=== PATIENT | male | born 2000 | race Caucasian/White ===

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

== ENCOUNTER → 2019-02-22 | Outpatient (CLI) | payer OTHER ==
[~2019-02-22] MED LIST: FLON1SPR; GABA-1171; IBUP-1022 PO; TOPI50TA9; ZOFR4TAB14 PO; ZYRT10CA5 PO
[2019-02-22 18:02] LABS: BASO % 0.6 % (0.0-1.0); EOS # 0.1 10^3/uL (0.0-0.50); EOS % 2.2 % (0.0-3.0); HEMATOCRIT 41.9 % (42.0-52.0); HEMOGLOBIN 14.2 g/dl (13.5-17.5); LYMPH # 1.9 10^3/uL (1.5-6.5); LYMPH % 35.4 % (24.0-44.0); MEAN CORPUSCULAR HEMOGLOBIN 32.6 pg (27.0-33.0); MEAN CORPUSCULAR HGB CONC 33.9 g/dl (32.0-36.5); MEAN CORPUSCULAR VOLUME 96.3 fl (80.0-96.0); MONO # 0.6 10^3/uL (0.0-0.8); MONO % 11.5 % (0.0-5.0); NEUTROPHILS # 2.7 10^3/uL (1.8-7.7); NEUTROPHILS % 50.1 % (36.0-66.0); PLATELET COUNT, AUTOMATED 295 10^3/uL (150-450); RED BLOOD COUNT 4.35 10^6/uL (4.30-6.10); WHITE BLOOD COUNT 5.4 10^3/uL (4.0-10.0)
[2019-02-22 18:16] LABS: IMMUNOGLOBULIN E 75.5 IU/ML (<100); IMMUNOGLOBULIN M 49.9 MG/DL (40-230)
[2019-02-27 00:06] LABS: ANTI TETANUS ANTIBODY 1.26 IU/mL (<0.10); ANTINUCLEAR ANTIBODIES DIRECT Negative (Negative); EBV AB TO NUCLEAR ANTIGEN <18.0 U/mL (0.0-17.9); EBV VIRAL CAPSID AG IgG <18.0 U/mL (0.0-17.9); EBV VIRAL CAPSID AG IgM <36.0 U/mL (0.0-35.9)
== END ==
LOC: M WUC 10:35
PROVIDERS: ATTEND Allergy & Immunology
DX: J32.9 Chronic sinusitis, unspecified (principal); R53.81 Other malaise

== ENCOUNTER 2021-02-28 12:41 | Inpatient (IN) | payer OTHER ==
[~2021-02-28] VITALS: Ht 172.7 cm; Wt 81.9 kg
[2021-02-28 14:01] LABS: HEMATOCRIT 42.6 % (42.0-52.0); HEMOGLOBIN 15.1 g/dl (13.5-17.5); MEAN CORPUSCULAR HEMOGLOBIN 32.2 pg (27.0-33.0); MEAN CORPUSCULAR HGB CONC 35.4 g/dl (32.0-36.5); MEAN CORPUSCULAR VOLUME 90.8 fl (80.0-96.0); PLATELET COUNT, AUTOMATED 336 10^3/uL (150-450); RED BLOOD COUNT 4.69 10^6/uL (4.30-6.10); WHITE BLOOD COUNT 9.6 10^3/uL (4.0-10.0)
[2021-02-28 14:46] LABS: AMPHETAMINES LEVEL URINE NEGATIVE (NEGATIVE); BARBITURATES URINE NEGATIVE (NEGATIVE); BENZODIAZEPINES URINE NEGATIVE (NEGATIVE); CANNABINOIDS URINE POSITIVE (NEGATIVE); COCAINE METABOLITE URINE NEGATIVE (NEGATIVE); METHADONE URINE NEGATIVE (NEGATIVE); OPIATES URINE NEGATIVE (NEGATIVE); PHENCYCLIDINE URINE NEGATIVE (NEGATIVE)
[2021-02-28 14:46] LABS: ACETAMINOPHEN LEVEL < 2.0 UG/ML (10.0-30.0); ALBUMIN 4.6 GM/DL (3.2-5.2); ALT/SGPT 21 U/L (12-78); BILIRUBIN,DIRECT 0.2 MG/DL (0.0-0.2); BILIRUBIN,TOTAL 0.6 MG/DL (0.2-1.0); BLOOD UREA NITROGEN 21 MG/DL (7-18); CALCIUM LEVEL 9.9 MG/DL (8.5-10.1); CARBON DIOXIDE LEVEL 27 MEQ/L (21-32); CHLORIDE LEVEL 106 MEQ/L (98-107); CREATININE FOR GFR 0.92 MG/DL (0.70-1.30); ETHYL ALCOHOL (ETHANOL) < 0.003 % (0.000-0.010); GLOMERULAR FILTRATION RATE > 60.0 (>60); GLUCOSE, FASTING 100 MG/DL (70-100); POTASSIUM SERUM 4.1 MEQ/L (3.5-5.1); SALICYLATE LEVEL < 1.7 MG/DL (5.0-30.0); SODIUM LEVEL 138 MEQ/L (136-145); TOTAL PROTEIN 7.9 GM/DL (6.4-8.2)
[2021-02-28] MEDS ORDERED: LORazepam 1 MG TAB PO STA (15:13)
[2021-02-28] MEDS ORDERED: CETI-24 PO (18:55)
[2021-02-28] MEDS ORDERED: ARIP1TAB6 PO (18:55)
[2021-02-28 19:31] LABS: RSV AMPLIFICATION NEGATIVE (NEGATIVE)
[2021-02-28] MEDS ORDERED: MOM 30ML SUSPENSION UDC PO PRN (20:45)
[2021-02-28] MEDS ORDERED: NICOTINE 21MG/24HR 1 EA TRANSDERMAL TD PRN (20:45)
[2021-02-28] MEDS ORDERED: MAALOX 30 ML SUSP *UDC PO PRN (20:45)
[2021-02-28] MEDS ORDERED: ACETAMINOPHEN TAB 650MG DOSE (2X325MG) PO PRN (20:45)
[2021-02-28] MEDS ORDERED: LORazepam 1 MG TAB PO PRN (20:45)
[2021-02-28 22:13] VITALS: BP 116/59
[2021-03-01 06:14] VITALS: BP 136/59
[2021-03-01] MEDS ORDERED: INFLUENZA QUADRIVALENT PF VACCINE 0.5ML SYRINGE IM ONE (09:00)
[2021-03-01] MEDS: CETIRIZINE (ZyrTEC) 10 MG TAB PO SCH (09:15)
--- NOTE | 2021-03-01 10:57 | MHHPEPDOC ---
General Date Of Admission: Feb 28, 2021 Legal Status: 9.39 (the voices in my head was getting worse) Chief Complaint "The voices in my head was getting worse and they were telling me that some people were trying to kill me and told me to get ready to protect myself. History of Present Illness HISTORY OF THE PRESENT ILLNESS: Patient is a 25 -year-old , male, who has been in counseling since his childhood and recently started seeing a psychiatrist about a month ago but no previous inpatient treatment. He apparently was experiencing increasing auditory hallucinations with marked paranoid nature and was trying to protect himself by holding a knife and then hiding inside the bathroom. The patient stated that the voices started to bother him since his high school days where he was hearing different people talking about him and arguing about him and sometimes telling him good and bad things. He was never treated for this, but was getting increasingly disturbed by the voices. He stated that the voices are getting worse in the past several months and lately started telling him that there are unknown group of people with weapons were trying to kill him. He stated that they were telling him that he should protect himself so he grabbed a knife from the kitchen and wrapped in a blanket and was going to neighbors house and later back to his home and went into the bathroom and locked himself in. His mother found him in the bathroom and aunt brought him to the emergency. Patient understand that this could be from his paranoid thoughts but stated that he felt it was a real, and it is getting harder to distinguish reality and his paranoia. He is denying any history of violence. Denies any history of kimberly and denies any history of suicidal attempt. He denies any drug use except for smoking pot, which he stopped 2 months ago. He has been in marked emotional distress and is willing to accept her. He apparently told his mother about the voices only recently was a sin by a psychiatrist 4 weeks ago, but stated that the medicine he took was not helping him. He is currently denying any intent to act out of his paranoia and currently denies any command hallucination and denies any suicidal thoughts. Psychiatric Review of Systems Depression (2 or more weeks): denies Kimberly (4 or more days of): denies Psychosis: auditory hallucination, delusions, paranoia PTSD: denies Anxiety: stressor related anxiety Past Psychiatric History Previous Psychiatric Diagnosis: ., ADHD, schizophrenia Previous Psychiatric Admissions: . No previous inpatient treatment Suicide Attempts: No history of suicidal attempt. Psychiatric Follow-up: . Recently started outpatient treatment Psychiatric medications: . Took antipsychotic medicine for 2 weeks, doesn't know the name Past Medical History Medical Problems Surgeries in 2012 and 2014 for sports related injury in barbering cervical spine and base of skull Has asthma and some allergies Head Injury: No Seizures: No Hospitalizations: Yes Surgeries: Yes Family Medical/Psychiatric HX Medical Problems Noncontributory Psychiatric Disorders: No Addiction: Yes (patient's father and the mother's side. Family has alcohol abuse issues) Suicide Attemps/Completions: No Addiction History denies Social History Childhood: Born in [place]. His parents are . was raised by his mother. Abuse/Trauma:[Denies any]. Current Living Situation: [Lives with the mother]. Education: [Finished her high school]. 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 Social Support: [Mother]. Legal: . No legal history. No history of violence Marital: [, Single]. Mental Status Examination General Appearance: appears stated age Build: average Demeanor: average, preoccupied, guarded Eye Contact: avoidant Activity: average, anxious Behavior: cooperative Speech: clear, slow, normal volume, non-spontaneous Mood: anxious Affect: constricted, appropriate, congruent, anxious Thought Process: logical/linear, slow Thought Content (Delusions): persecutory, paranoia Thought Content (Other): preoccupied, internal-stimuli, appears paranoid Thought Content (Aggressive): none reported, other (. Denies any aggressive thoughts, but he was feeling unsafe and was trying to protect himself) Perception (Hallucinations): auditory Perception (Other): none reported Cognition (Impairment of): none reported Cognition(Intelligence Est.): average Oriented: Awake, Alert, Oriented times three Insight: fair Judgment: Poor Psychosis: Other (, long history of auditory hallucination but recently became much more paranoid and the hallucinations of persecutory nature, but he denies any command hallucination) Diagnoses Schizophrenia, paranoid type A-FIB/CHADSVASC A-FIB History Current/History of A-Fib/PAF?: No Current PO Anticoag Therapy: No Age/Risk Factor Scoring CHADSVASC: CHADSVASC Response (Comments) Value Gender Risk Factor Male 0 Hx of CHF No 0 Hx of HTN No 0 Hx of Stroke/TIA/or VTE No 0 Hx of Diabetes No 0 Hx of Vascular Disease No 0 Total 0 Treatment Treatment ordered: NONE Assessment Parent had the symptoms starting several years back but recently becoming much more severe. Clearly in need of stabilization with antipsychotic medicine and supportive therapy Initial Treatment Plan 1. Patient was admitted on a 9.39 status. 2. Complete history was obtained. 3. With patients permission, family will be contacted and database will be expanded. 4. Patients medication regimen will be reviewed and changed accordingly. 5. Patient will be provided with protected environment. 6. Patient will be treated with individual, group, and milieu therapies. 7. Patient will receive supportive psych-education. 8. Discharge planning will commence immediately. 9. Outpatient follow-up treatment will be strongly recommended. 10. The initial treatment plan will focus initially on: * Depression. * Risk for suicide. ESTIMATED LENGTH OF STAY: 5-7 DAYS. TIME SPENT COUNSELING AND COORDINATING INITIAL CARE: 45 minutes. Tobacco Cessation Screen If Patient is a Smoker Non-small N/A-No Antipsychotics Vital Signs Vital Signs Date Time Temp Pulse Resp B/P (MAP) Pulse Ox O2 Delivery O2 Flow Rate FiO2 03/01/21 06:14 98.4 76 18 136/59 (84) 97 Room Air Laboratory Data 24H Labs Laboratory Tests 2 02/28/21 13:34: Urine Opiates Screen NEGATIVE, Urine Methadone Screen NEGATIVE, Urine Barbiturates Screen NEGATIVE, Urine Phencyclidine Screen NEGATIVE, Urine Amphetamines Screen NEGATIVE, Urine Benzodiazepines Screen NEGATIVE, Urine Cocaine Metabolite Screen NEGATIVE, Urine Cannabinoids Screen POSITIVEH 02/28/21 13:38: Nucleated Red Blood Cells % (auto) 0.0, Anion Gap 5L, Glomerular Filtration Rate > 60.0, Calcium Level 9.9, Total Bilirubin 0.6, Direct Bilirubin 0.2, Aspartate Amino Transf (AST/SGOT) 17, Alanine Aminotransferase (ALT/SGPT) 21, Alkaline Phosphatase 66, Total Protein 7.9, Albumin 4.6, Albumin/Globulin Ratio 1.4, Thyroid Stimulating Hormone (TSH) 2.020, Salicylates Level < 1.7L, Acetaminophen Level < 2.0L, Ethyl Alcohol Level < 0.003 02/28/21 18:36: Coronavirus (COVID-19)(PCR) NEGATIVE, Influenza Type A (RT-PCR) NEGATIVE, Influenza Type B (RT-PCR) NEGATIVE, Respiratory Syncytial Virus (PCR) NEGATIVE CBC/BMP Laboratory Tests 02/28/21 13:38 Medications Scheduled Aripiprazole (Aripiprazole) 5 Mg Tablet, 5 MG PO DAILY, (Reported) Cetirizine HCl (Cetirizine HCl) 10 Mg Tablet, 10 MG PO DAILY, (Reported) Allergies Coded Allergies: Peanut (Verified Allergy, Severe, 02/28/21) ELISSA DAAMS M.D. Mar 01, 2021 10:57
--- NOTE | 2021-03-01 12:58 | HPEPDOC ---
[facility] Medical History & Physical Date of Admission Feb 28, 2021 Date of Service: Mar 01, 2021 History and Physical CHIEF COMPLAINT: Routine medical exam HISTORY OF PRESENT ILLNESS: 20-year-old male admitted on 02/28/2021 to the inpatient mental health unit with past medical history significant for asthma, environmental allergies and sports related injury involving his cervical spine and base of the skull 2012 and 2014 respectively, presented to the emergency room with complaints of auditory hallucinations and paranoia, holding a knife trying to protect himself. Hospitalist was asked to evaluate the patient for any acute medical complaints. Patient denies fever, chills, shortness of breath, chest pain, pressure, tightness, lightheadedness, dizziness, nausea, vomiting, abdominal pain, diarrhea, constipation, bright red blood per rectum, melena, black tarry stools, changes in weight, sleep habits, polyuria, polydipsia, polyphagia, weight gain, weight loss, bilateral upper and lower extremity weakness or paresthesias. No other medical complaints. Asthma has been well controlled. Does not use any bronchodilators. 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 His parents are morning in [place]. Quit smoking. No alcohol use FAMILY HISTORY: Mother and father are in their 50s. Maternal grandfather had breast cancer. Ma ternal grandmother had cancer of the face ALLERGIES: No known drug allergies. Allergy to peanuts REVIEW OF SYSTEMS: 10 point review of systems negative aside from positive findings in HPI HOME MEDICATIONS: Please see below. PHYSICAL EXAMINATION: VITAL SIGNS: See below GENERAL APPEARANCE: Awake, alert, oriented 3, answering questions appropriately. No pallor, icterus or jaundice HEENT: No JVD. Face is symmetric. Tongue is midline CARDIOVASCULAR: Regular rate rhythm, S1, S2 LUNGS: Air entry is equal bilaterally. No kyphosis. No scoliosis clear to auscultation. No adventitious breath sounds ABDOMEN: Positive bowel sounds 4 quadrants, soft, nontender, nondistended. No rebound or guarding. No hepatosplenomegaly EXTREMITIES no cyanosis, clubbing or pitting edema. LABORATORY DATA: See below. MICROBIOLOGY: Please see below. ASSESSMENT: 20-year-old male admitted on 02/28/2021 to the inpatient mental health unit with past medical history significant for asthma, environmental allergies and sports related injury involving his cervical spine and base of the skull 2012 and 2014 respectively, presented to the emergency room with complaints of auditory hallucinations and paranoia, holding a knife trying to protect himself. Hospitalist was asked to evaluate the patient for any acute medical complaints. Patient denies fever, chills, shortness of breath, chest pain, pressure, tightn ess, lightheadedness, dizziness, nausea, vomiting, abdominal pain, diarrhea, constipation, bright red blood per rectum, melena, black tarry stools, changes in weight, sleep habits, polyuria, polydipsia, polyphagia, weight gain, weight loss, bilateral upper and lower extremity weakness or paresthesias. No other medical complaints. Asthma has been well controlled. Does not use any bronchodilators. Auditory hallucinations Asthma, controlled Seasonal allergies History of sports injury involving cervical spine base of the skull PLAN: Patient is no acute medical issues. Hospitalist will sign off. Please reconsult and call [facility] if new medical complaints arise. Vital Signs Vital Signs Date Time Temp Pulse Resp B/P (MAP) Pulse Ox O2 Delivery O2 Flow Rate FiO2 03/01/21 06:14 98.4 76 18 136/59 (84) 97 Room Air Laboratory Data Labs 24H Laboratory Tests 2 02/28/21 13:34: Urine Opiates Screen NEGATIVE, Urine Methadone Screen NEGATIVE, Urine Barbiturates Screen NEGATIVE, Urine Phencyclidine Screen NEGATIVE, Urine Amphetamines Screen NEGATIVE, Urine Benzodiazepines Screen NEGATIVE, Urine Cocaine Metabolite Screen NEGATIVE, Urine Cannabinoids Screen POSITIVEH 02/28/21 13:38: Nucleated Red Blood Cells % (auto) 0.0, Anion Gap 5L, Glomerular Filtration Rate > 60.0, Calcium Level 9.9, Total Bilirubin 0.6, Direct Bilirubin 0.2, Aspartate Amino Transf (AST/SGOT) 17, Alanine Aminotransferase (ALT/SGPT) 21, Alkaline Phosphatase 66, Total Protein 7.9, Albumin 4.6, Albumin/Globulin Ratio 1.4, Thyroid Stimulating Hormone (TSH) 2.020, Salicylates Level < 1.7L, Acetaminophen Level < 2.0L, Ethyl Alcohol Level < 0.003 02/28/21 18:36: Coronavirus (COVID-19)(PCR) NEGATIVE, Influenza Type A (RT-PCR) NEGATIVE, Influenza Type B (RT-PCR) NEGATIVE, Respiratory Syncytial Virus (PCR) NEGATIVE CBC/BMP Laboratory Tests 02/28/21 13:38 Home Medications Scheduled Aripiprazole (Aripiprazole) 5 Mg Tablet, 5 MG PO DAILY Cetirizine HCl (Cetirizine HCl) 10 Mg Tablet, 10 MG PO DAILY Allergies Coded Allergies: Peanut (Verified Allergy, Severe, 02/28/21) A-FIB/CHADSVASC A-FIB History Current/History of A-Fib/PAF?: No Current PO Anticoag Therapy: No Age/Risk Factor Scoring CHADSVASC: CHADSVASC Response (Comments) Value Age Risk Factor Age < 65 years old 0 Gender Risk Factor Male 0 Hx of CHF No 0 Hx of HTN No 0 Hx of Stroke/TIA/or VTE No 0 Hx of Diabetes No 0 Hx of Vascular Disease No 0 Total 0 Treatment Treatment ordered: NONE LELE BOWLING MD Mar 01, 2021 12:58
[2021-03-01 16:19] VITALS: BP 138/70
[2021-03-01] MEDS: traZODone 50 MG TAB PO PRN (20:42)
[2021-03-01] MEDS ORDERED: risperiDONE 2 MG TAB PO SCH (21:00)
[2021-03-02 06:04] VITALS: BP 131/77
[2021-03-02] MEDS: CETIRIZINE (ZyrTEC) 10 MG TAB PO SCH (09:01)
[2021-03-02] MEDS: BENZTROPINE 1 MG TAB PO SCH ×2 (09:01→20:09)
--- NOTE | 2021-03-02 11:06 | MHIPNPDOC ---
[facility] Progress Note Progress Note DATE OF SERVICE: 03/02/21 The patient was started on risperidone 2 mg at bedtime and he has cooperated and reports that he had no side effect and tolerated the medicine well. He admits that he is still hearing voices and the voices include some of the doctors he saw in the past and reports that their comments are more positive ones and not getting any critical comments from those voices. He is denying any command hallucination but the voices are making him very confused and gets him very anxious at times and wants help to get rid of this. He denies any thoughts of hurting himself and is maintaining good control. This M.D. spoke with patient's mother yesterday who essentially confirms what the patient reported in terms of his symptoms and background history. HISTORY: . VITAL SIGNS: See below. NEW TEST RESULTS: . CURRENT MEDICATIONS: See below. MENTAL STATUS EXAMINATION: Patient is a 20-year old male, who is , quite anxious, but cooperative. Speech: Is rational, coherent. Language skills are fair. Thought processes including: Relevant and coherent . Thought content: Marked paranoid nature. Abstract reasoning, and computation: Failure. Description of associations: Well organized. Description of abnormal or psychotic thoughts: Auditory hallucination and paranoid delusions. Judgment: Fair. Insight: fair.. Orientation: , Oriented. Recent and remote memory: Good. Attention span and concentration: fair. Language: . Fund of knowledge: ]. Mood: [, Anxious, fearful]. Affect: [Blunted]. DIAGNOSES: 1. . Schizophrenia, paranoid 2. . 3. . ASSESSMENT:[No basic change] MANAGEMENT PLAN: [, Ms. stabilization with the medicine increase his risperidone to 3 mg at Cogentin 1 mg twice a day. Supportive therapy and education]. TIME SPENT: 20 minutes. Vital Signs Vital Signs Date Time Temp Pulse Resp B/P (MAP) Pulse Ox O2 Delivery O2 Flow Rate FiO2 03/02/21 06:04 97.6 70 16 131/77 (95) 98 Room Air Current Medications Current Medications Medications (Trade) Dose Ordered Sig/Olga Route PRN Reason Start Time Stop Time Status Last Admin Dose Admin Acetaminophen (Tylenol Tab) 650 mg Q6HP PRN PO HEADACHE or MILD DISCOMFORT 02/28/21 20:45 Al Hydrox/Mg Hydrox/Simethicone (Mylanta) 30 ml Q4HP PRN PO HEARTBURN/INDIGESTION 02/28/21 20:45 Aripiprazole (AbiLIFY) 5 mg DAILY PO 03/01/21 09:00 03/01/21 10:23 DC 03/01/21 09:15 Benztropine Mesylate (Cogentin) 1 mg BID PO 03/02/21 09:00 03/02/21 09:01 Cetirizine HCl (ZyrTEC) 10 mg DAILY PO 03/01/21 09:00 03/02/21 09:01 Home Med (Med Rec Complete!) ASDIRECTED XX 02/28/21 19:00 02/28/21 19:01 DC Lorazepam (Ativan) 1 mg Q6HP PRN PO ANXIETY/AGITATION 02/28/21 20:45 Lorazepam (Ativan) 1 mg STAT STAT PO 02/28/21 15:13 02/28/21 15:14 DC 02/28/21 15:17 Magnesium Hydroxide (Milk Of Magnesia) 30 ml DAILYPRN PRN PO CONSTIPATION 02/28/21 20:45 03/02/21 10:13 Nicotine (Nicoderm Cq 21mg) 1 patch DAILY PRN TD NICOTINE WITHDRAWAL 02/28/21 20:45 Risperidone (RisperDAL) 2 mg QHS PO 03/01/21 21:00 03/02/21 08:04 DC 03/01/21 20:42 Risperidone (RisperDAL) 3 mg QHS PO 03/02/21 21:00 Trazodone HCl (Desyrel) 50 mg QHSP PRN PO INSOMNIA 02/28/21 20:45 03/01/21 20:42 Allergies Coded Allergies: Peanut (Verified Allergy, Severe, 02/28/21) ELISSA ADAMS M.D. Mar 02, 2021 11:06
[2021-03-02 16:10] VITALS: BP 137/68
[2021-03-02] MEDS: traZODone 50 MG TAB PO PRN (20:09)
[2021-03-02] MEDS: risperiDONE 3 MG TAB PO SCH (20:09)
[2021-03-03 06:42] VITALS: BP 137/82
[2021-03-03] MEDS: CETIRIZINE (ZyrTEC) 10 MG TAB PO SCH (09:06)
[2021-03-03] MEDS: BENZTROPINE 1 MG TAB PO SCH ×2 (09:06→20:10)
--- NOTE | 2021-03-03 10:48 | MHIPNPDOC ---
[facility] Progress Note Progress Note DATE OF SERVICE: 03/03/21 Patient is fully cooperated with this medicine and denies any physical side effect. He slept a good and is eating and has no physical complaints except for slight dry mouth. Patient claims that the voices are much less intense and not as frequent and didn't really hear anything this morning. He claims that he is feeling better about this and is feeling more hopeful. His affect remains a quite blunted and preoccupied and not much emotional response, but not bizarre or inappropriate. He is denying any command hallucination and denies any need to protect himself and denies any suicidal thoughts. HISTORY: . VITAL SIGNS: See below. NEW TEST RESULTS: . CURRENT MEDICATIONS: See below. MENTAL STATUS EXAMINATION: Patient is a 20-year old male, who is , cooperative, in no acute distress. Speech: Is rational and coherent. Language skills are good. Thought processes including: Responding and relevant manner. Thought content: Reports decreased paranoid fear. Abstract reasoning, and computation: Fair. Description of associations: Fairly organized. Description of abnormal or psychotic thoughts: Reports decreased auditory hallucination. Judgment: Fair. Insight fair.]. Orientation: Well oriented . Recent and remote memory: Fair. Attention span and concentration: . Language: . Fund of knowledge: . Mood: , Moderately anxious. Affect: Blunted but appropriate. DIAGNOSES: 1. ., Schizophrenia, paranoid 2. . 3. . ASSESSMENT:Cooperating and tolerating medicine MANAGEMENT PLAN: , . stabilization with his medicine and supportive therapy]. TIME SPENT: 20 minutes. Vital Signs Vital Signs Date Time Temp Pulse Resp B/P (MAP) Pulse Ox O2 Delivery O2 Flow Rate FiO2 03/03/21 06:42 97.9 83 14 137/82 (100) 100 Room Air Current Medications Current Medications Medications (Trade) Dose Ordered Sig/Olga Route PRN Reason Start Time Stop Time Status Last Admin Dose Admin Acetaminophen (Tylenol Tab) 650 mg Q6HP PRN PO HEADACHE or MILD DISCOMFORT 02/28/21 20:45 Al Hydrox/Mg Hydrox/Simethicone (Mylanta) 30 ml Q4HP PRN PO HEARTBURN/INDIGESTION 02/28/21 20:45 Aripiprazole (AbiLIFY) 5 mg DAILY PO 03/01/21 09:00 03/01/21 10:23 DC 03/01/21 09:15 Benztropine Mesylate (Cogentin) 1 mg BID PO 03/02/21 09:00 03/03/21 09:06 Cetirizine HCl (ZyrTEC) 10 mg DAILY PO 03/01/21 09:00 03/03/21 09:06 Home Med (Med Rec Complete!) ASDIRECTED XX 02/28/21 19:00 02/28/21 19:01 DC Lorazepam (Ativan) 1 mg Q6HP PRN PO ANXIETY/AGITATION 02/28/21 20:45 Lorazepam (Ativan) 1 mg STAT STAT PO 02/28/21 15:13 02/28/21 15:14 DC 02/28/21 15:17 Magnesium Hydroxide (Milk Of Magnesia) 30 ml DAILYPRN PRN PO CONSTIPATION 02/28/21 20:45 03/02/21 10:13 Nicotine (Nicoderm Cq 21mg) 1 patch DAILY PRN TD NICOTINE WITHDRAWAL 02/28/21 20:45 Risperidone (RisperDAL) 2 mg QHS PO 03/01/21 21:00 03/02/21 08:04 DC 03/01/21 20:42 Risperidone (RisperDAL) 3 mg QHS PO 03/02/21 21:00 03/02/21 20:09 Trazodone HCl (Desyrel) 50 mg QHSP PRN PO INSOMNIA 02/28/21 20:45 03/02/21 20:09 Allergies Coded Allergies: Peanut (Verified Allergy, Severe, 02/28/21) ELISSA ADAMS M.D. Mar 03, 2021 10:48
[2021-03-03 19:06] VITALS: BP 145/77
[2021-03-03] MEDS: risperiDONE 3 MG TAB PO SCH (20:10)
[2021-03-04 06:00] VITALS: BP 134/64
[2021-03-04] MEDS: CETIRIZINE (ZyrTEC) 10 MG TAB PO SCH (09:06)
[2021-03-04] MEDS: BENZTROPINE 1 MG TAB PO SCH ×2 (09:06→21:25)
--- NOTE | 2021-03-04 10:20 | MHIPNPDOC ---
[facility] Progress Note Progress Note DATE OF SERVICE: 03/04/21 The patient is fully cooperating with his medications, has no complaint of side effect and reports that he is almost back to his normal self. He claims that t he voices are very distant and is not hearing them much at all and denies any command in nature. He does not feel that his life is in danger, but does not feel the need to protect himself and stated that he is feeling more peaceful and safe. His only complaint is that he gets occasional headache which is worse after they stopped his Topamax about a month ago. He doesn't want to restart Topamax until he gets to talk to his neurologist and going to use Tylenol or Motrin as needed. HISTORY: . VITAL SIGNS: See below. NEW TEST RESULTS: . CURRENT MEDICATIONS: See below. MENTAL STATUS EXAMINATION: Patient is a 20-year old male, who is , cooperative. Speech: Is rational and productive. Language skills are good. Thought processes including: Relevant and coherent. Thought content: Reports marked reduction in paranoid thoughts. Abstract reasoning, and computation: , Fair. Description of associations: , Organized. Description of abnormal or psychotic thoughts: , Not hearing as much of voices. Judgment: , Fair. Insight: fair.. Orientation: , Oriented. Recent and remote memory: , Fair. Attention span and concentration: , Fair. Language: . Fund of knowledge: . Mood: , Moderately anxious but not feeling as fearful. Affect: Quite blunted but appropriate. DIAGNOSES: 1. . Schizophrenia, paranoid type 2. . 3. . ASSESSMENT:, Tolerating medicine and showing some improvement MANAGEMENT PLAN: . Continue with the risperidone for stabilization. TIME SPENT: 20 minutes. Vital Signs Vital Signs Date Time Temp Pulse Resp B/P (MAP) Pulse Ox O2 Delivery O2 Flow Rate FiO2 03/04/21 06:00 98.6 60 18 134/64 (87) 98 03/03/21 06:42 Room Air Current Medications Current Medications Medications (Trade) Dose Ordered Sig/Olga Route PRN Reason Start Time Stop Time Status Last Admin Dose Admin Acetaminophen (Tylenol Tab) 650 mg Q6HP PRN PO HEADACHE or MILD DISCOMFORT 02/28/21 20:45 03/03/21 20:10 Al Hydrox/Mg Hydrox/Simethicone (Mylanta) 30 ml Q4HP PRN PO HEARTBURN/INDIGESTION 02/28/21 20:45 Aripiprazole (AbiLIFY) 5 mg DAILY PO 03/01/21 09:00 03/01/21 10:23 DC 03/01/21 09:15 Benztropine Mesylate (Cogentin) 1 mg BID PO 03/02/21 09:00 03/04/21 09:06 Cetirizine HCl (ZyrTEC) 10 mg DAILY PO 03/01/21 09:00 03/04/21 09:06 Home Med (Med Rec Complete!) ASDIRECTED XX 02/28/21 19:00 02/28/21 19:01 DC Lorazepam (Ativan) 1 mg Q6HP PRN PO ANXIETY/AGITATION 02/28/21 20:45 Lorazepam (Ativan) 1 mg STAT STAT PO 02/28/21 15:13 02/28/21 15:14 DC 02/28/21 15:17 Magnesium Hydroxide (Milk Of Magnesia) 30 ml DAILYPRN PRN PO CONSTIPATION 02/28/21 20:45 03/02/21 10:13 Nicotine (Nicoderm Cq 21mg) 1 patch DAILY PRN TD NICOTINE WITHDRAWAL 02/28/21 20:45 Risperidone (RisperDAL) 2 mg QHS PO 03/01/21 21:00 03/02/21 08:04 DC 03/01/21 20:42 Risperidone (RisperDAL) 3 mg QHS PO 03/02/21 21:00 03/03/21 20:10 Trazodone HCl (Desyrel) 50 mg QHSP PRN PO INSOMNIA 02/28/21 20:45 03/02/21 20:09 Allergies Coded Allergies: Peanut (Verified Allergy, Severe, 02/28/21) ELISSA ADAMS M.D. Mar 04, 2021 10:20
[2021-03-04] MEDS ORDERED: RIZATRIPTAN BENZOATE 10 MG TAB PO PRN (13:35)
[2021-03-04] MEDS ORDERED: FIORICET TAB PO ONE (14:00)
[2021-03-04 16:09] VITALS: BP 135/68
[2021-03-04] MEDS: traZODone 50 MG TAB PO PRN (21:25)
[2021-03-04] MEDS: risperiDONE 3 MG TAB PO SCH (21:25)
[2021-03-05 06:17] VITALS: BP 139/63
[2021-03-05] MEDS: BENZTROPINE 1 MG TAB PO SCH ×2 (08:16→21:04)
[2021-03-05] MEDS: CETIRIZINE (ZyrTEC) 10 MG TAB PO SCH (08:16)
[2021-03-05] MEDS: FIORICET TAB PO PRN ×2 (08:17→16:16)
[2021-03-05 16:34] VITALS: BP 135/77
[2021-03-05] MEDS: risperiDONE 3 MG TAB PO SCH (21:04)
[2021-03-06 06:21] VITALS: BP 133/84
[2021-03-06] MEDS: FIORICET TAB PO PRN ×2 (08:13→21:34)
[2021-03-06] MEDS: BENZTROPINE 1 MG TAB PO SCH ×2 (08:13→21:29)
[2021-03-06] MEDS: CETIRIZINE (ZyrTEC) 10 MG TAB PO SCH (08:13)
[2021-03-06 16:46] VITALS: BP 140/86
[2021-03-06] MEDS: traZODone 50 MG TAB PO PRN (21:29)
[2021-03-06] MEDS: risperiDONE 3 MG TAB PO SCH (21:30)
[2021-03-07 07:05] VITALS: BP 152/68
[2021-03-07] MEDS: BENZTROPINE 1 MG TAB PO SCH ×2 (08:51→20:58)
[2021-03-07] MEDS: CETIRIZINE (ZyrTEC) 10 MG TAB PO SCH (08:51)
--- NOTE | 2021-03-07 11:16 | MHIPNPDOC ---
[facility] Progress Note Progress Note DATE OF SERVICE: 03/07/21 Patient hasn't been cooperating with his medicine and maintained a very good control. He is, however, very guarded and not very spontaneous and appears somewhat superficial. He is strongly denying any more hallucinations and claims that he is feeling the best in the past few months and has no problems taking his medicine. He is denying any more hallucinations. Denies any command hallucination and stated that he hardly hears any voices. He has been on 3 mg of risperidone and there is no complaint of side effect and no gross EPSE. The con cern I have is that the patient appears to be quite superficial and evasive and trying to present best appearance and the possibility that he is minimizing his symptoms because he is so anxious to go home. His behavior has been in good control and has not shown any bizarre or paranoid behavior, so I really increase his risperidone to 4 mg at bedtime to get the optimum result and most likely discharge him tomorrow with close follow-up. HISTORY: . VITAL SIGNS: See below. NEW TEST RESULTS: . CURRENT MEDICATIONS: See below. MENTAL STATUS EXAMINATION: Patient is a 20-year old male, who is , somewhat superficial but cooperative. Speech: Is relevant, coherent, but not very productive. Language skills are good. Thought processes including: Relevant. Thought content: He is superficially denying any problems . Abstract reasoning, and computation: fair. Description of associations: , Organized. Description of abnormal or psychotic thoughts: Patient is denying any command hallucination and denies any paranoid themes. Judgment: fair. Insight: fair. Orientation: Oriented . Recent and remote memory: fair. Attention span and concentration: . Language: . Fund of knowledge: Average. Mood: , Moderately anxious. Affect: Blunted and superficial. DIAGNOSES: 1. . Schizophrenia, paranoid type 2. . 3. . ASSESSMENT: Maintaining good control and cooperating with the medicine MANAGEMENT PLAN: . Increase risperidone to 4 mg at bedtime. TIME SPENT: [20] minutes. Vital Signs Vital Signs Date Time Temp Pulse Resp B/P (MAP) Pulse Ox O2 Delivery O2 Flow Rate FiO2 03/07/21 07:05 98.4 63 20 152/68 (96) 100 Room Air Current Medications Current Medications Medications (Trade) Dose Ordered Sig/Olga Route PRN Reason Start Time Stop Time Status Last Admin Dose Admin Acetaminophen (Tylenol Tab) 650 mg Q6HP PRN PO HEADACHE or MILD DISCOMFORT 02/28/21 20:45 03/03/21 20:10 Acetaminophen/ Butalbital/ Caffeine (Fioricet) 2 ea Q4HP PRN PO HEADACHE 03/04/21 18:00 03/06/21 21:34 Al Hydrox/Mg Hydrox/Simethicone (Mylanta) 30 ml Q4HP PRN PO HEARTBURN/INDIGESTION 02/28/21 20:45 Aripiprazole (AbiLIFY) 5 mg DAILY PO 03/01/21 09:00 03/01/21 10:23 DC 03/01/21 09:15 Benztropine Mesylate (Cogentin) 1 mg BID PO 03/02/21 09:00 03/07/21 08:51 Cetirizine HCl (ZyrTEC) 10 mg DAILY PO 03/01/21 09:00 03/07/21 08:51 Home Med (Med Rec Complete!) ASDIRECTED XX 02/28/21 19:00 02/28/21 19:01 DC Lorazepam (Ativan) 1 mg Q6HP PRN PO ANXIETY/AGITATION 02/28/21 20:45 03/06/21 12:27 DC Lorazepam (Ativan) 1 mg STAT STAT PO 02/28/21 15:13 02/28/21 15:14 DC 02/28/21 15:17 Magnesium Hydroxide (Milk Of Magnesia) 30 ml DAILYPRN PRN PO CONSTIPATION 02/28/21 20:45 03/02/21 10:13 Nicotine (Nicoderm Cq 21mg) 1 patch DAILY PRN TD NICOTINE WITHDRAWAL 02/28/21 20:45 Risperidone (RisperDAL) 2 mg QHS PO 03/01/21 21:00 03/02/21 08:04 DC 03/01/21 20:42 Risperidone (RisperDAL) 3 mg QHS PO 03/02/21 21:00 03/06/21 21:30 Rizatriptan Benzoate (Maxalt) 10 mg Q2HP PRN PO MIGRAINE 03/04/21 13:35 03/05/21 17:42 Trazodone HCl (Desyrel) 50 mg QHSP PRN PO INSOMNIA 02/28/21 20:45 03/06/21 21:29 Allergies Coded Allergies: Peanut (Verified Allergy, Severe, 02/28/21) ELISSA ADAMS M.D. Mar 07, 2021 11:16
[2021-03-07 17:31] VITALS: BP 122/58
[2021-03-07] MEDS ORDERED: risperiDONE 2 MG TAB PO SCH (21:00)
[2021-03-08 07:29] VITALS: BP 102/54
[2021-03-08] MEDS: BENZTROPINE 1 MG TAB PO SCH (08:16)
[2021-03-08] MEDS: CETIRIZINE (ZyrTEC) 10 MG TAB PO SCH (08:16)
[2021-03-08] MEDS ORDERED: RISP-9 PO (10:42)
[2021-03-08] MEDS ORDERED: BENZ-52 PO (10:42)
--- NOTE | 2021-03-09 12:38 | MHDSPDOC ---
[facility] Discharge Summary Discharge Summary DATE OF ADMISSION: Feb 28, 2021 at 20:44 DATE OF DISCHARGE: Mar 08, 2021 at 10:57 DISCHARGE DIAGNOSES: 1. . Schizophrenia, paranoid type 2. . REASON FOR ADMISSION: 20-year-old made with a long history of auditory hallucination and paranoid ideas but no treatment until a month ago. Patient was brought to emergency room after he became extremely preoccupied with hallucinations and paranoid delusions where he believed that the group of people trying to get him and was trying to protect himself by holding a knife and locked himself in a bathroom. Patient reported increasing auditory hallucination with a group of people with discussing about him and started to make threats against him. Patient has a history of smoking pot, but denies any drug use for the past month. CONSULTANTS INVOLVED: TREATMENT AND PROGRESS ON THE UNIT : Patient was started on risperidone 2 mg at bedtime, gradually increased to 4 mg and was given Cogentin 1 mg twice a day for possible side effect. Patient does fully cooperated with the medications and reported a gradual reduction in the hallucination and stated that he is not concerned about the paranoid thoughts anymore and is not hearing any more voices. Denied any serious depression, denied any suicidal thoughts and maintained good control.. HOSPITAL COURSE: Patient was seen for daily supportive therapy and stabilized with risperidone 4 mg at bedtime. He has not shown any bizarre behavior or agitated behavior and fully cooperated and remained in good control. He is pleasant on approach, but is somewhat evasive at times and appears to be minimizing his symptoms, so he was fully educated about the importance of continuing his medications and follow up with psychiatric outpatient treatment. He is fully understanding the nature of his condition and the importance of continued treatment. He denies any more paranoid fear and denies any lethality issues DISCHARGE ASSESSMENT: , Much improved and no signs of any dangerous behavior MENTAL STATUS EXAMINATION ON DISCHARGE: Patient is a -year old male, who is in good control and contact. Speech is rational but not productive . Language skills are good. Thought processes including: Relevant and coherent. Thought content: Is denying any more paranoid fear. Abstract reasoning, and computation: fair. Description of associations: Well-organized, but somewhat evasive. Description of abnormal or psychotic thoughts: He is denying any more hallucination or paranoid fear but he may be minimizing]. Judgment: fair. Insight: fair. Orientation to well oriented,. Recent and remote memory: Unimpaired . Attention span and concentration: fair. Language: . Fund of knowledge: . Mood: , Mildly anxious. Affect: Slightly blunted but appropriate. MEDICATIONS ON DISCHARGE: - for . Risperidone 4 mg at bedtime for 7 days with 3 refills - for ., Cogentin 1 mg twice a day for 7 days with 3 refills - for . PLAN/FOLLOWUP ARRANGEMENTS: Arranged by the environmental planner. The amount of time spent in the coordination of care for this patient was approximately 35 minutes. ETOH/Disorder Med Rx ETOH/DRUG DISORDER RX: N/A Vital Signs/I&Os Vital Signs Date Time Temp Pulse Resp B/P (MAP) Pulse Ox O2 Delivery O2 Flow Rate FiO2 03/08/21 07:29 97.9 55 18 102/54 (70) 99 Room Air Medications Scheduled Benztropine Mesylate (Benztropine Mesylate) 1 Mg Tablet, 1 MG PO BID for side effect for 7 Days, #14 Cetirizine HCl (Cetirizine HCl) 10 Mg Tablet, 10 MG PO DAILY, (Reported) Risperidone (Risperidone) 2 Mg Tablet, 4 MG PO QHS for psychosis for 7 Days, #14 Allergies Coded Allergies: Peanut (Verified Allergy, Severe, 02/28/21) ELISSA ADAMS M.D. Mar 09, 2021 12:38
== END 2021-03-08 10:57 | disposition home or self-care (01) | DRG 885 ==
LOC: M ED 12:41 → M ED INP 20:44 → M PSY 21:14
PROVIDERS: ADMIT Psychiatry & Neurology Psychiatry; ATTEND Psychiatry & Neurology Psychiatry
DX: F20.0 Paranoid schizophrenia (principal); Z20.822 Contact with and (suspected) exposure to COVID-19; Z79.899 Other long term (current) drug therapy; Z91.010 Allergy to peanuts; J45.909 Unspecified asthma, uncomplicated; Z81.1 Family history of alcohol abuse and dependence

== ENCOUNTER 2022-11-07 18:17 | Emergency (ER) | payer OTHER ==
[~2022-11-07] VITALS: Ht 172.7 cm; Wt 87.1 kg
[~2022-11-07 18:17] MED LIST changes: +ARIP1TAB6 PO; +BENZ1TAB5 PO; +CETI-24 PO; +RISP-9 PO; +TOPI-254; -TOPI50TA9
[2022-11-07 18:58] LABS: BASO % 0.2 % (0.0-1.0); EOS % 0.3 % (0.0-3.0); HEMATOCRIT 45.5 % (42.0-52.0); LYMPH # 0.5 10^3/uL (1.5-5.0); LYMPH % 3.8 % (24.0-44.0); MEAN CORPUSCULAR HEMOGLOBIN 31.4 pg (27.0-33.0); MEAN CORPUSCULAR HGB CONC 35.2 g/dl (32.0-36.5); MEAN CORPUSCULAR VOLUME 89.2 fl (80.0-96.0); MONO # 0.8 10^3/uL (0.0-0.8); MONO % 5.9 % (2.0-8.0); NEUTROPHILS # 11.8 10^3/uL (1.5-8.5); NEUTROPHILS % 89.4 % (36.0-66.0); PLATELET COUNT, AUTOMATED 271 10^3/uL (150-450); WHITE BLOOD COUNT 13.1 10^3/uL (4.0-10.0)
[2022-11-07 19:17] LABS: LIPASE 25 U/L (12-53)
[2022-11-07 19:22] LABS: ALBUMIN 4.2 G/DL (3.2-5.2); ALKALINE PHOSPHATASE 56 U/L (46-116); ALT/SGPT 26 U/L (7.0-40); AST/SGOT 18 U/L (<34); BILIRUBIN,DIRECT 0.3 MG/DL (<0.4); BILIRUBIN,TOTAL 1.1 MG/DL (0.3-1.2); BLOOD UREA NITROGEN 24 MG/DL (9-23); CALCIUM LEVEL 9.9 MG/DL (8.5-10.1); CARBON DIOXIDE LEVEL 26 MMOL/L (20-31); CHLORIDE LEVEL 103 MMOL/L (98-107); GLOMERULAR FILTRATION RATE > 60.0 (>60); GLUCOSE, FASTING 99 MG/DL (60-100); POTASSIUM SERUM 4.2 MMOL/L (3.5-5.1); SODIUM LEVEL 136 MMOL/L (136-145); TOTAL PROTEIN 7.3 G/DL (5.7-8.2)
[2022-11-08 00:25] VITALS: BP 139/68
[2022-11-08] MEDS ORDERED: ACETAMINOPHEN 1000MG 100ML IV BAG IV ONE (01:00)
[2022-11-08] MEDS ORDERED: NS 1,000 ML IV ONE (01:00)
[2022-11-08] MEDS ORDERED: ONDANSETRON 4MG 2ML VIAL IV ONE (01:00)
[2022-11-08] MEDS ORDERED: MORPHINE 4 MG/ML 1ML VIAL IV ONE (01:00)
[2022-11-08] MEDS ORDERED: ISOVUE-370 76% 100ML VIAL As Ordered ONE (01:05)
[2022-11-08 02:18] LABS: RSV AMPLIFICATION NEGATIVE (NEGATIVE)
[2022-11-08] MEDS ORDERED: COLA100C5 PO (02:43)
[2022-11-08] MEDS ORDERED: ONDA4TAB6 PO (02:43)
[2022-11-08] MEDS ORDERED: MIRA3350 PO (02:43)
[2022-11-08] MEDS ORDERED: GLYCERIN ADULT SUPP PR ONE (02:45)
[2022-11-08] MEDS ORDERED: DOCUSATE SODIUM 100MG CAPSULE PO ONE (02:45)
[2022-11-08] MEDS ORDERED: MAGNESIUM CITRATE 300ML BTL PO ONE (02:45)
== END 2022-11-08 03:25 | disposition home or self-care (01) ==
LOC: M ED 18:17
DX: K59.00 Constipation, unspecified (principal); E86.0 Dehydration; F20.9 Schizophrenia, unspecified; J45.909 Unspecified asthma, uncomplicated; Q07.00 Arnold-Chiari syndrome without spina bifida or hydrocephalus; Z79.899 Other long term (current) drug therapy; Z91.010 Allergy to peanuts
CPT/HCPCS: 74177; 80048; 80076; 81001; 83605; 83690; 85025; 87631; 87880; 93041; 96361; 96374; 96375; 99284; J0131; J2270; J2405

== ENCOUNTER → 2022-11-25 | Outpatient (CLI) | payer OTHER ==
[~2022-11-25] MED LIST changes: +COLA100C5 PO; +MIRA3350 PO; +ONDA4TAB6 PO
[2022-11-25 09:41] LABS: HEMOGLOBIN A1c 4.7 % (4.0-6.0)
[2022-11-25 09:52] LABS: CHOLESTEROL RISK RATIO 3.43 (<5); HDL CHOLESTEROL 37.8 MG/DL (>40); LDL CHOLESTEROL 82.8 MG/DL (<100); NON-HDL-C 92.2 MG/DL
== END ==
LOC: M LAB 09:08
PROVIDERS: ATTEND Psychiatry & Neurology Psychiatry
DX: Z79.899 Other long term (current) drug therapy (principal)